=== PATIENT | male | born 1960 | race Two or more races ===

== ENCOUNTER 2018-08-19 12:07 | Emergency (ER) | payer OTHER ==
[~2018-08-19] VITALS: Ht 177.8 cm; Wt 91.2 kg
--- NOTE | 2018-08-19 12:20 | NUR ---
BIBRA 41, FOUND ALTERED IN GROUP HOME. NO REPORTED TRAUMA. PT ASLEEP, SNORING, EASILY AWAKEN WITH VERBAL STIMULI, KNOWS FULL NAME BUT WILL GO BACK TO SLEEP. PT ABLE TO MOVE ALL EXTREMITIES. VSS. NO RESP DISTRESS NOTED @ THIS TIME. PT SEEN & EVAL'D BY DR. MCBRIDE. [employer] OFFICERS @ BS. WILL CONT TO MONITOR.
[2018-08-19 12:26] LABS: BASOPHILS % (AUTO) 0.7 % (0.0-2.0); EOSINOPHILS % (AUTO) 2.6 % (0.0-6.0); HEMATOCRIT 36 % (39-51); LYMPHOCYTES # (AUTO) 1.5 /CMM (0.8-4.8); LYMPHOCYTES % (AUTO) 21.1 % (20.0-44.0); MEAN CORPUSCULAR HGB CONC 34 g/dl (31.0-36.0); MEAN CORPUSCULAR VOLUME 81 fL (80-96); MONOCYTES # (AUTO) 0.8 /CMM (0.1-1.30); MONOCYTES % (AUTO) 11.9 % (2.0-12.0); NEUTROPHILS # (AUTO) 4.6 /CMM (1.8-8.9); NEUTROPHILS % (AUTO) 63.7 % (43.0-81.0); PLATELET COUNT (AUTO) 247 /CMM (150-450); RDW COEFFICIENT OF VARIATION 13.9 (11.5-15.0); RED BLOOD CELL COUNT(AUTO) 4.41 MIL/uL (4.5-6.0); WHITE BLOOD COUNT (AUTO) 7.1 K/uL (4.3-11.0)
[2018-08-19] MEDS ORDERED: IV NS 0.9% 1,000 ML BAG IV ONE (12:30)
[2018-08-19 12:36] LABS: CALCIUM, SERUM 8.8 mg/dL (8.5-10.1); CARBON DIOXIDE 32 mmol/L (21-32); CHLORIDE 108 mmol/L (98-107); CREATININE 0.8 mg/dL (0.6-1.3); GLUCOSE 183 mg/dL (74-106); POTASSIUM 3.9 mmol/L (3.5-5.1); SODIUM SERUM 142 mmol/L (136-145); UREA NITROGEN, BLOOD 28 mg/dL (7-18)
[2018-08-19 12:42] LABS: ALANINE AMINOTRANSFERASE 49 U/L (12-78); ALBUMIN 3.6 g/dL (3.4-5.0); ALKALINE PHOSPHATASE 107 U/L (46-116); ASPARTATE AMINOTRANSFERASE 51 U/L (15-37); BILIRUBIN,DIRECT 0.1 mg/dL (0.0-0.2); BILIRUBIN,TOTAL 0.6 mg/dL (0.2-1.0); INR 0.88 (0.85-1.15); TOTAL PROTEIN, SERUM 7.2 g/dL (6.4-8.2)
[2018-08-19 12:45] LABS: TROPONIN I < 0.017 ng/mL (0.00-0.056)
[2018-08-19 12:48] LABS: ALCOHOL, BLOOD < 3 mg/dL (0-0)
[2018-08-19 13:03] LABS: THYROID STIMULATING HORMONE 0.832 uIU/mL (0.358-3.74)
[2018-08-19 13:07] LABS: APPEARANCE,URINE Clear (CLEAR); BILIRUBIN,URINE Negative (NEGATIVE); BLOOD, URINE Trace-intact Ery/uL (NEGATIVE); COLOR,URINE Yellow (YELLOW); KETONES,URINE Trace (NEGATIVE); LEUKOCYTE ESTERASE ,URINE Negative (NEGATIVE); NITRITE, URINE Negative (NEGATIVE); PH,URINE 5.5 (5.0-8.0); PROTEIN,URINE Trace mg/dl (NEGATIVE); UGLUCOSE >=1000 mg/dL (NEGATIVE); UROBILINOGEN,URINE 0.2 EU/dL (0.2)
[2018-08-19] MEDS ORDERED: IOHEXOL-300 100 ML VIAL IV ONE (13:09)
--- NOTE | 2018-08-19 13:09 | NUR ---
PT TO CT VIA [facility].
[2018-08-19] MEDS ORDERED: CT SWABBABLE VALVE TRANS SET 1 EA INFUS.SET MC ONE (13:11)
[2018-08-19] MEDS ORDERED: IV NS 0.9% 250 ML IV ONE (13:11)
[2018-08-19 13:17] LABS: BACTERIA,URINE Few /HPF (None Seen); RBC,URINE 0-2 /HPF (0-2); SQUAMOUS EPITHELIAL CELL,UR Rare /HPF (None Seen); WBC,URINE 0-2 /HPF (0-3)
--- NOTE | 2018-08-19 15:05 | NUR ---
Patient is resting comfortably in bed with eyes closed. Easily aroused WITH VERBAL STIMULI. VSS, NO RESP DISTRESS NOTED @ THIS TIME. [employer] OFFICERS @ BS.
[2018-08-19] MEDS ORDERED: IBUPROFEN 400 MG TABLET ONE (17:20)
--- NOTE | 2018-08-19 17:34 | NUR ---
IV removed. Catheter intact and site benign. Pressure and 4x4 applied to site. No bleeding noted.Patient discharged to [facility] in stable condition. Written and verbal after care instructions given. Patient verbalizes understanding of instruction.
[2018-08-19 17:35] VITALS: BP 138/81
== END 2018-08-19 17:39 ==
LOC: ER 12:10
DX: T65.91XA Toxic effect of unspecified substance, accidental (unintentional), initial encounter (principal); R41.82 Altered mental status, unspecified; R94.31 Abnormal electrocardiogram [ECG] [EKG]; Y92.89 Other specified places as the place of occurrence of the external cause
CPT/HCPCS: 36415; 70450; 71045; 74177; 80048; 80076; 80305; 81001; 82962; 84443; 84484; 85025; 85730; 87086; 93005; 96360; 99291; A4606; G0480; J7030; J7050; Q9967; Z7610; 81000-TC

== ENCOUNTER 2020-03-24 11:43 | Emergency (ER) | payer OTHER ==
[~2020-03-24] VITALS: Ht 167.6 cm; Wt 70.8 kg
--- NOTE | 2020-03-24 11:43 | NUR ---
PT [facility] AND [employer] FROM [facility] C/O CHEST PAIN AND SOB, PT IS AAOX4, NOT IN RESPIRATORY DISTRESS, HOOKED TO RATING OFFICER, KEPT RESTED AND COMFORTABLE, WILL CONTINUE TO MONITOR.
[2020-03-24] MEDS ORDERED: HYDROMORPHONE 1 MG/1 ML DISP.SYRIN ONE (11:53)
--- NOTE | 2020-03-24 11:53 | NUR ---
PT SEEN AND EXAMINED BY .
--- NOTE | 2020-03-24 11:58 | NUR ---
Line started on r ac g 18, blood drawn from line and sent to lab
[2020-03-24] MEDS ORDERED: HYDROMORPHONE INJ 2 MG/ML DISP.SYRIN IV ONE (12:00)
[2020-03-24 12:09] LABS: BASOPHILS # (AUTO) 0.1 /CMM (0.0-0.2); BASOPHILS % (AUTO) 0.6 % (0.0-2.0); HEMATOCRIT 47 % (39-51); HEMOGLOBIN 15.6 g/dL (13.5-17.5); LYMPHOCYTES # (AUTO) 1.5 /CMM (0.8-4.8); LYMPHOCYTES % (AUTO) 15.7 % (20.0-44.0); MEAN CORPUSCULAR HGB CONC 33 g/dl (31.0-36.0); MEAN CORPUSCULAR VOLUME 86 fL (80-96); MONOCYTES # (AUTO) 0.6 /CMM (0.1-1.30); MONOCYTES % (AUTO) 6.1 % (2.0-12.0); NEUTROPHILS # (AUTO) 7.5 /CMM (1.8-8.9); NEUTROPHILS % (AUTO) 76.6 % (43.0-81.0); PLATELET COUNT (AUTO) 288 /CMM (150-450); RED BLOOD CELL COUNT(AUTO) 5.49 MIL/uL (4.5-6.0); WHITE BLOOD COUNT (AUTO) 9.8 K/uL (4.3-11.0)
[2020-03-24 12:20] LABS: CALCIUM, SERUM 9.2 mg/dL (8.5-10.1); CARBON DIOXIDE 25 mmol/L (21-32); CHLORIDE 99 mmol/L (98-107); CREATININE 0.7 mg/dL (0.6-1.3); GLUCOSE 181 mg/dL (74-106); POTASSIUM 4.3 mmol/L (3.5-5.1); SODIUM SERUM 134 mmol/L (136-145); UREA NITROGEN, BLOOD 17 mg/dL (7-18)
--- NOTE | 2020-03-24 13:06 | NUR ---
P RELEASED UNDER THE CARED FOR [facility]. PT IS MEDICALLY CLEARED FOR INCARCERATION. PT IS IN STABLE CONDITION. NAD NOTED
[2020-03-24 13:07] VITALS: BP 164/98
--- NOTE | 2020-03-24 13:07 | NUR ---
IV removed. Catheter intact and site benign. Pressure and 4x4 applied to site. No bleeding noted. Pt ambulatory with a steady gait
== END 2020-03-24 13:08 ==
LOC: ER 11:45
DX: R07.89 Other chest pain (principal)
CPT/HCPCS: 36415; 71045; 80048; 84484; 85025; 93005 ×3; 96374; 99285; J1170